=== PATIENT | male | born 1980 | race Caucasian/White ===

== ENCOUNTER 2017-07-07 18:15 | Emergency (ER) | payer OTHER ==
[~2017-07-07] VITALS: Ht 182.9 cm; Wt 90.7 kg
[~2017-07-07 18:15] MED LIST: IBUP600 PO; NAPR500 PO; OXYACE5T PO; RXCYCL10 PO; TRAM50 PO
[2017-07-07 18:30] LABS: Calcium, Ionized (POC) 1.09 mmol/L (1.10-1.46); Chloride (POC) 101 mmol/L (98-108); Creatinine (POC) 1.4 mg/dL (0.8-1.3); Glucose (ISTAT POC) 178 mg/dL (70-99); Hemoglobin (POC) 15.6 g/dL (13.5-17.5); Potassium (POC) 4.3 mmol/L (3.5-5.5); Sodium (POC) 138 mmol/L (135-148); Total CO2 (POC) 17 mmol/L (21-32)
== END 2017-07-07 18:40 ==
LOC: ER 18:15
PROVIDERS: Emergency Medicine
DX: F15.129 Other stimulant abuse with intoxication, unspecified (principal); Z88.0 Allergy status to penicillin
CPT/HCPCS: 80047; 85014; 90471; 90714; 99283

== ENCOUNTER 2017-08-17 20:02 | Emergency (ER) | payer OTHER ==
[~2017-08-17] VITALS: Ht 185.4 cm; Wt 83.9 kg
== END 2017-08-17 23:10 | disposition left against medical advice (07) ==
LOC: ER 20:02
DX: Z53.21 Procedure and treatment not carried out due to patient leaving prior to being seen by health care provider (principal)